=== PATIENT | female | born 2000 | race Hispanic/Latino ===

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

== ENCOUNTER 2022-02-07 18:08 | Emergency (ER) | payer SELFPAY | END 2022-02-07 20:04 | disposition home or self-care (01) | LOC: ERS 18:08 | DX: H10.12 Acute atopic conjunctivitis, left eye (principal) | CPT/HCPCS: 99282 ==

== ENCOUNTER 2024-11-25 22:46 | Emergency (ER) | payer SELFPAY ==
[2024-11-25] MEDS ORDERED: Ketorolac Tromethamine 30 MG (1 mL) VIAL ONE (23:28)
[2024-11-25] MEDS ORDERED: Acetaminophen 325 MG TAB ONE (23:28)
[2024-11-25] MEDS ORDERED: Ondansetron PF 4 MG/2 ML Vial ONE (23:28)
[2024-11-25] MEDS ORDERED: Dexamethasone 10 MG/ML VIAL ONE (23:28)
[2024-11-25 23:49] LABS: #Basophils 0.03 10x3/uL (0.0-0.2); #Eosinophils 0.05 10x3/uL (0.0-0.7); #Monocytes 0.83 10x3/uL (0.11-0.59); #Neutrophils 9.39 10x3/uL (1.40-6.50); %Basophils 0.2 % (0.0-1.0); %Eosinophils 0.4 % (0.0-10.0); %Lymphocytes 16.2 % (21.0-51.0); %Monocytes 6.7 % (0.0-10.0); %Neutrophils 76.3 % (42.0-75.0); Hematocrit 43.3 % (36.0-47.0); Hemoglobin 14.3 g/dL (12.0-16.0); Mean Corpuscular Hemoglobin 28.2 pg (27.0-31.0); Mean Corpuscular Volume 85.4 fL (78.0-98.0); Platelet Count 249 10x3/uL (130-400); Red Blood Cell (RBC) Count 5.07 mill/uL (4.20-5.40); White Blood Cell (WBC) Count 12.32 10x3/uL (4.8-10.8)
[2024-11-26] MEDS ORDERED: predniSONE 20 MG TAB ONE (00:03)
[2024-11-26 00:05] LABS: ALT (SGPT) 83 U/L (Less than 34); AST (SGOT) 26 U/L (11-34); Albumin 4.3 g/dL (3.1-4.5); Alkaline Phosphatase 85 U/L (40-110); Anion Gap 14 mmol/L (10-20); BUN (Urea Nitrogen) 7 mg/dL (7.0-18.7); Bilirubin, Total 0.6 mg/dL (0.3-1.2); Calc. Creatinine Clearance 0 mL/min (70-130); Calcium 9.6 mg/dL (7.8-10.44); Carbon Dioxide 24 mmol/L (22-29); Chloride 106 mmol/L (98-107); Globulin 3.6 g/dL (2.4-3.5); Glucose 97 mg/dL (70-105); Potassium 3.9 mmol/L (3.5-5.1); Sodium 140 mmol/L (136-145)
[2024-11-26] MEDS ORDERED: diphenhydrAMINE 50 MG/ML VIAL ONE (00:52)
== END 2024-11-26 02:17 | disposition home or self-care (01) ==
LOC: ERS 22:46
DX: H60.501 Unspecified acute noninfective otitis externa, right ear (principal)
CPT/HCPCS: 80053; 83605; 85025; 87428; 96374; 96375; 96376; J1100; J1200; J1885; J2405; J3010; J7512